=== PATIENT | male | born 1990 | race Caucasian/White ===

== ENCOUNTER 2018-02-09 13:49 | Outpatient (CLI) | payer OTHER ==
--- NOTE | 2018-02-09 18:05 | MRI Report ---
Procedure Date: 02/09/2018 Accession Number: [id number] / [id number] Procedure: MRI - Shoulder RT W/O CPT Code: FULL RESULT: EXAM: RIGHT SHOULDER MRI WITHOUT CONTRAST EXAM DATE: 02/09/2018 02:49 PM. CLINICAL HISTORY: Pain in right shoulder. COMPARISON: None. TECHNIQUE: Multiplanar, multisequence T1-weighted and fluid-sensitive sequences of the shoulder without contrast. Other: None. FINDINGS: Acromioclavicular Region: The acromion is type II. 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 Small AC joint effusion. The coracoacromial and coracoclavicular ligaments are intact. No subacromial/subdeltoid bursal fluid. Glenohumeral Region: No subluxation. No effusion or loose bodies. The articular cartilage is unremarkable. The glenohumeral ligaments and joint capsule are unremarkable. Bone Marrow: No fracture, marrow edema or bone lesions. Labrum: The labrum is unremarkable on this nonarthrographic study. Musculature/Rotator Cuff: Minimal increased T2 signal at the musculotendinous junction of the supraspinatus and infraspinatus portions the rotator cuff. Series 7 and 1 image 14 and 15. Remainder of the rotator cuff appears unremarkable. No proximal muscular fatty atrophy. Biceps Tendon: The long head of the biceps tendon and biceps tristen are intact. Other: The subcutaneous tissues are unremarkable. IMPRESSION: 1. Type II unipartite undersurface osseous acromion shape. 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 2. There is mild tendinopathy at the supraspinatus and infraspinatus portions the rotator cuff. No tear. 3. Labrum, capsular structures and long head of biceps appear unremarkable. [facility]CUL[facility] SECTION
== END 2018-02-09 13:50 | disposition home or self-care (01) ==
LOC: DI 13:49
PROVIDERS: ATTEND General Practice
DX: M19.011 Primary osteoarthritis, right shoulder (principal); M25.411 Effusion, right shoulder

== ENCOUNTER 2018-09-12 09:04 | Outpatient (CLI) | payer OTHER ==
[2018-09-12] MEDS ORDERED: BUFFERED LIDOCAINE 10 ML SYRINGE ONE ×2 (09:32)
[2018-09-12] MEDS ORDERED: GADOPENTETATE DIMEGLUMINE 5 ML VIAL IVP ONE ×2 (09:32→12:08)
[2018-09-12] MEDS ORDERED: IOTHALAMATE MEGLUMINE 50 ML VIAL ONE (09:33)
[2018-09-12] MEDS ORDERED: IOTHALAMATE MEGLUMINE 50 ML VIAL IVP ONE (12:08)
[2018-09-12] MEDS ORDERED: BUFFERED LIDOCAINE 10 ML SYRINGE IU ONE (12:08)
--- NOTE | 2018-09-12 13:15 | MRI Report ---
Reason: PAIN IN LEFT SHOULDER Procedure Date: 09/12/2018 Accession Number: [id number] / [id number] Procedure: MRI - Arthrogram Shoulder LT CPT Code: FULL RESULT: EXAM: LEFT SHOULDER MRI ARTHROGRAM WITH CONTRAST EXAM DATE: 09/12/2018 11:30 AM. CLINICAL HISTORY: Pain in left shoulder. COMPARISON: None. TECHNIQUE: Multiplanar, multisequence T1-weighted and fluid-sensitive sequences of the shoulder after an arthrographic injection of dilute gadolinium, dictated under a separate exam. Other: None. FINDINGS: Acromioclavicular Region: The acromion is type II. There is an acromioclavicular joint effusion. There is no contrast in the joint space. There is no contrast or fluid in the subacromial/subdeltoid bursa. Glenohumeral Region: No subluxation. No loose bodies. The articular cartilage is unremarkable. The glenohumeral ligaments and joint capsule are unremarkable. Bone Marrow: No fracture, marrow edema or bone lesions. Labrum: The labrum is unremarkable. Biceps Tendon: The long head of the biceps tendon and biceps tristen are intact. Musculature/Rotator Cuff: The subscapularis, supraspinatus, infraspinatus, and teres minor tendons are intact. No edema or fatty atrophy. Other: The subcutaneous tissues are unremarkable. IMPRESSION: 1. Effusion in the acromioclavicular joint which may indicate prior grade 1 disruption. 2. The glenohumeral joint, rotator cuff and labrum appeared normal. [facility]CUL[facility]KE[facility] SECTION
--- NOTE | 2018-09-12 16:57 | XRAY Report ---
Reason: PAIN IN LEFT SHOULDER Procedure Date: 09/12/2018 Accession Number: [id number] / [id number] Procedure: FL - Arthrogram Needle Placement CPT Code: FULL RESULT: EXAM: LEFT SHOULDER ARTHROGRAPHIC INJECTION WITH FLUOROSCOPIC GUIDANCE EXAM DATE: 09/12/2018 10:10 AM. CLINICAL HISTORY: PAIN IN LEFT SHOULDER. Dislocation left AC joint COMPARISON: None. TECHNIQUE: The risks, benefits, and alternatives of the procedure were discussed with the patient. All questions were answered. Written and verbal consent were obtained. The left glenohumeral joint was marked under fluoroscopy and prepped and draped in a sterile manner. Local anesthesia was performed with 1% lidocaine. A 22-gauge needle was then inserted into the glenohumeral joint. 10 mL of a solution containing 25% 1% lidocaine, 25% iodinated contrast, and a 1:200 dilution of gadolinium contrast in sterile saline was then injected. The needle was removed without immediate complication. Other: None. Fluoroscopy Time: 25 seconds. Number of Images: 2. FINDINGS: Bones and joints: Left AC joint separation. Injection: Fluoroscopic images demonstrate needle placement and contrast in the glenohumeral joint. IMPRESSION: Successful fluoroscopically guided arthrographic injection of the left shoulder. [facility]
== END 2018-09-12 09:05 | disposition home or self-care (01) ==
LOC: DI 09:04
PROVIDERS: ATTEND Orthopaedic Surgery
DX: M25.512 Pain in left shoulder (principal); M25.412 Effusion, left shoulder
CPT/HCPCS: 23350; 73222; 77002; Q9961

== ENCOUNTER 2018-10-30 11:55 | Emergency (ER) | payer OTHER ==
--- NOTE | 2018-10-30 12:57 | ED Physician Documentation ---
History of Present Illness - Stated complaint Stated Complaint: GROIN PX - Chief complaint Chief Complaint: Abd Pain - History obtained from History obtained from: Patient - History of Present Illness Timing: How many days ago (several) Pain level max: 5 Pain level now: 1 - Additonal information Additional information: 28-year-old male presents to the emergency department complaint of right sided groin pain for the past several days. Thinks he may have strained it lifting something heavy. Also concerned about a possible hernia. Denies any changes in sexual partners. No dysuria. Does occasionally have right-sided testicular pain. Worse with bending over. Better with standing. Normal bowel movements. No pain with bowel movement. Review of Systems Constitutional: denies: Fever, Chills Respiratory: denies: Cough GI: denies: Abdominal Pain, Nausea, Vomiting, Diarrhea Skin: denies: Rash Musculoskeletal: denies: Neck pain, Back pain PD PAST MEDICAL HISTORY - Past Medical History Past Medical History: No Cardiovascular: None Respiratory: None Endocrine/Autoimmune: None GI: None, GERD : None HEENT: None Psych: Depression Musculoskeletal: Other Derm: Other Other Past Medical History: R shoulder AC separation - sug 08/16. L shoulder will be repaired soon as well - Past Surgical History Past Surgical History: Yes Ortho: Other - Present Medications Home Medications: Ambulatory Orders Medication Instructions Recorded Confirmed Duloxetine HCl [Cymbalta] 60 mg PO DAILY 08/01/18 10/30/18 traZODone [Desyrel] 50 mg PO HS 08/01/18 08/03/18 Ibuprofen 600 mg PO Q6HR PRN 08/03/18 10/30/18 - Allergies Allergies/Adverse Reactions: Allergies Allergy/AdvReac Type Severity Reaction Status Date / Time No Known Drug Allergies Allergy Verified 10/30/18 11:59 - Social History Does the pt smoke?: No Smoking Status: Former smoker PD ED PE NORMAL - Vitals Vital signs reviewed: Yes - General General: Alert and oriented X 3, No acute distress - HEENT HEENT: Moist mucous membranes - Neck Neck: Supple, no meningeal sign - Cardiac Cardiac: RRR - Respiratory Respiratory: No respiratory distress, Clear bilaterally - Abdomen Abdomen: Soft, Non tender, Non distended - Male Male : Other (Normal external exam. No testicular tenderness. No masses. No epididymal tenderness. No inguinal hernia palpable on lying or standing with Valsalva. Patient refuses rectal exam) - Back Back: No spinal TTP - Derm Derm: Warm and dry - Neuro Neuro: Alert and oriented X 3 Results - Vitals Vitals: Vital Signs - 24 hr 10/30/18 14:47 Heart Rate 80 Respiratory 16 Rate Blood Pressure 130/77 O2 Saturation 96 Oxygen O2 Source Room air - Labs Labs: Laboratory Tests 10/30/18 13:22 Urine Color YELLOW Urine Clarity CLEAR Urine pH 7.0 Ur Specific [place] 1.020 Urine Protein NEGATIVE Urine Glucose (UA) NEGATIVE Urine Ketones NEGATIVE Urine Occult Blood NEGATIVE Urine Nitrite NEGATIVE Urine Bilirubin NEGATIVE Urine Urobilinogen 0.2 (NORMAL) Ur Leukocyte Esterase NEGATIVE Ur Microscopic Review NOT INDICATED Urine Culture Comments NOT INDICATED - Rads (name of study) Testicular ultrasound Radiology: Prelim report reviewed, EMP read contemporaneously, See rad report (no acute findings) PD MEDICAL DECISION MAKING - ED course Complexity details: reviewed results, re-evaluated patient, considered differential, d/w patient ED course: 28-year-old male with groin and perineal discomfort of unclear etiology. He refuses a rectal exam. Is not having pain with bowel movements. Possible early prostatitis? But has been ongoing for quite some time. No evidence of hernia on physical exam or ultrasound. We will have him follow-up with his doctor for further care. Patient counseled regarding signs and symptoms for which I believe and urgent re-evaluation would be necessary. Patient with good understanding of and agreement to plan and is comfortable going home at this time This document was made in part using voice recognition software. While efforts are made to proofread this document, sound alike and grammatical errors may occur. Departure - Departure Disposition: 01 Home, Self Care Clinical Impression: Groin pain Qualifiers: Laterality: right Qualified Code(s): R10.31 - Right lower quadrant pain Condition: Good Instructions: ED Acute Pain [facility] Follow-Up: Louis Flowers MD [Primary Care Provider] - Within 3 Days Comments: The cause of your symptoms is unclear today. Follow-up with your doctor for further care. All of your testing is normal today. Discharge Date/Time: 10/30/18 14:47
--- NOTE | 2018-10-30 13:49 | Ultrasound Report ---
Reason: R testicular and groin pain x 3 days Procedure Date: 10/30/2018 Accession Number: [id number] / [id number] Procedure: US - Testicle w/Doppler CPT Code: FULL RESULT: EXAM: SCROTAL ULTRASOUND EXAM DATE: 10/30/2018 01:20 PM. CLINICAL HISTORY: R testicular and groin pain x 3 days. COMPARISON: None available. TECHNIQUE: Real-time scanning was performed with static images obtained. Color-flow images were utilized. FINDINGS: Right: Testis: 3.9 x 2.0 x 2.6 cm. Normal size and echotexture. No mass, calcification, or abnormal blood flow. Epididymis: 1.4 x 0.7 x 1.5 cm. Normal size and echotexture. No mass or abnormal blood flow. Hydrocele: Trace. Varicocele: None. Left: Testis: 4.0 x 1.8 x 2.8 cm. Normal size and echotexture. No mass, calcification, or abnormal blood flow. Epididymis: 0.7 x 0.9 x 1.0 cm. Normal size and echotexture. No mass or abnormal blood flow. Hydrocele: Trace Varicocele: None. IMPRESSION: No evidence of testicular torsion. Trace bilateral hydroceles. [facility]
[2018-10-30 14:25] LABS: BILIRUBIN,URINE NEGATIVE (NEGATIVE); GLUCOSE, URINE (UA) NEGATIVE (NEGATIVE); KETONES,URINE (UA) NEGATIVE (NEGATIVE); LEUKOCYTE ESTERASE, URINE NEGATIVE (NEGATIVE); NITRITE,URINE NEGATIVE (NEGATIVE); OCCULT BLOOD,URINE NEGATIVE (NEGATIVE); PROTEIN,URINE NEGATIVE (NEGATIVE); UROBILINOGEN,URINE 0.2 (NORMAL) E.U./dL (NORMAL)
[2018-10-30 14:31] LABS: CLARITY,URINE CLEAR (CLEAR)
[2018-10-30 14:48] VITALS: BP 130/77
== END 2018-10-30 14:47 | disposition home or self-care (01) ==
LOC: ED 11:55
DX: R10.31 Right lower quadrant pain (principal); Z87.891 Personal history of nicotine dependence
CPT/HCPCS: 76870; 81001; 81003; 87086; 87491; 87591; 93975; 99283

== ENCOUNTER 2018-12-09 07:01 | Day surgery (SDC) | payer OTHER ==
[~2018-12-09 07:01] MED LIST: cefTRIAXone 2 GM VIAL ONE
[2018-12-09] MEDS ORDERED: LACTATED RINGERS 1,000 ML IV ONE ×3 (07:02→12:25)
--- NOTE | 2018-12-09 07:14 | ANESTHESIA ---
Pre-Anesthesia VS, & Labs - Diagnosis L shoulder AC joint dislocation - Procedure L shoulder cc ligament reconstruction Height 6 ft Weight (kg) 85.73 kg Body Mass Index 23.7 - NPO >8 hours Home Medications and Allergies Duloxetine HCl [Cymbalta] 60 mg PO DAILY 08/01/18 Ibuprofen 600 mg PO Q6HR PRN 08/03/18 Allergies/Adverse Reactions: Allergies Allergy/AdvReac Type Severity Reaction Status Date / Time No Known Drug Allergies Allergy Verified 12/05/18 11:02 Anes History & Medical History - Anesthetic History Anesthesia Complications: reports: No previous complications Family history of Anesthesia Complications: Denies Family history of Malignant Hyperthermia: Denies - Medical History Cardiovascular: reports: None Pulmonary: reports: None Gastrointestinal: reports: None Urinary: reports: None Musculoskeletal: reports: Other Endocrine/Autoimmune: reports: None Skin: reports: None Smoking Status: Former smoker Exam General: Alert, Oriented x3, Cooperative Dental: WNL Mouth Openin Fingerbreadth Neck Mobility: Normal Mallampati classification: II Thyromental Distance: 4-6 cm Respiratory: Lungs clear, Normal breath sounds Cardiovascular: Regular rate Neurological: Normal speech Mental/Cognitive Status: Alert/Oriented X3, Normal for patient Cognitive Status: Within normal limits Plan Anesthesia Type: General, Interscalene Block (only as rescue per surgeon, post- op) Consent for Procedure(s) Verified and Reviewed: Yes Code Status: Attempt Resuscitation ASA classification: 1-Healthy patient Is this case an emergency?: No
[2018-12-09] MEDS ORDERED: BUPIVACAINE 0.5% PF 30 ML VIAL ONE (07:35)
[2018-12-09] MEDS ORDERED: BUPIVACAINE 0.5% PF 30 ML VIAL SUBQ ONE (08:27)
[2018-12-09] MEDS ORDERED: fentaNYL 100 MCG/2 ML VIAL IVP ONE (08:30)
[2018-12-09] MEDS ORDERED: DEXAMETHASONE 4 MG/ML VIAL IVP ONE (08:30)
[2018-12-09] MEDS ORDERED: KETOROLAC 30 MG/ML VIAL IVP ONE (08:30)
[2018-12-09] MEDS ORDERED: ONDANSETRON 4 MG/2 ML VIAL IVP ONE (08:30)
[2018-12-09] MEDS ORDERED: ACETAMINOPHEN 1,000 MG/100 ML 100 ML IV ONE (08:30)
[2018-12-09] MEDS ORDERED: ROCURONIUM 50 MG/5 ML VIAL IVP ONE (08:30)
[2018-12-09] MEDS ORDERED: PROPOFOL 200 MG/20 ML VIAL IVP ONE (08:30)
[2018-12-09] MEDS ORDERED: MIDAZOLAM 2 MG/2 ML VIAL IVP ONE (08:30)
[2018-12-09] MEDS ORDERED: LIDOCAINE-MPF 2% 5 ML VIAL IM ONE (08:30)
[2018-12-09] MEDS ORDERED: ONDANSETRON 4 MG/2 ML VIAL IVP PRN (10:35)
[2018-12-09] MEDS ORDERED: oxyCODONE 5 MG TABLET PO PRN (10:35)
--- NOTE | 2018-12-09 10:42 | OPERATIVE REPORT ---
Operative Report - Other Other Information/Narrative: Date of Surgery: 09 December 2018 Pre-Op Diagnosis: Left grade 3 AC separation Procedure: Left coracoclavicular joint reconstruction Left acromioclavicular joint reconstruction Postop Diagnosis: Same Primary Surgeon: Jon Woodruff Secondary Surgeon: Donovan Sinha Complications: None EBL: 50 Implants: 5.5 x 15 mm peek Bio-Tenodesis screw x2 Arthrex Fiber tape x1 Arthrex Tibialis anterior allograft Postoperative Protocol: 0-2 weeks-Sling at all times. xrays @ 2 weeks 2-6 weeks-Passive range of motion in all planes. Sling on at all times when not in PT 6-12 weeks-Active range of motion in all planes 12 weeks and beyond-Increase strengthening activities Indication For Surgery: 28-year-old male who is 7 months status post a grade 3 AC separation. He underwent extensive physical therapy but continued to have instability and dysfunction of the left shoulder. The risks, benefits, and alternatives were discussed. Risks include pain, bleeding, infection, damage to nearby structures, numbness, lack of symptom relief, implant complications, nonunion, need for further surgery, DVT, PE, stroke, and . Written consent was obtained. Procedure in Detail: The patient was met in the preoperative holding on the day of the procedure. Operative extremity was signed. Consent was verified. They desired to proceed. Regional anesthesia was obtained in the preoperative area. They were brought to the operating room and surrendered to anesthesia. Once general anesthesia was obtained they were placed in the beach chair position. A padded kidney pad was placed. The head was secured with the neck in a neutral position. A surgical timeout was held to confirm the patient procedure, identity, procedure, laterality, allergies, images, and antibiotics. All were in agreement we proceeded. A 7 cm incision was made in line with Obie's lines from the coracoid to the clavicle. Hemostasis was obtained with electrocautery. Dissection was brought down to the fascia and full-thickness skin flaps were created. Full-thickness incision was made superiorly over the clavicle and the distal clavicle was skeletonized from the deltoid insertion and at the trapezial insertion. The AC joint was entered and the capsule was split superiorly. I then used scissors to separate the tissue beneath the clavicle at the location of the coracoid. I then used electrocautery to dissect down to the lateral aspect of the coracoid. A dhillon elevator was used to clear the base of the coracoid of all attached soft tissue taking care to not disrupt insertions of the tendon at the tip. I then placed the coracoid suture passer by Arthrex from medial to lateral, hugging the bone. Sutures were passed I then thawed out the allograft and placed fiber loop on each end. It sized to 5.5 mm I then marked 45 mm from the articular surface of the clavicle. The pin for the conoid ligament reconstruction was placed posteriorly within the clavicle and I ensured that I would not blow out the back. I then reamed to 6 mm bicortically and protected myself inferiorly with a wide dhillon elevator. I then repeated this procedure 15 mm lateral to the conoid tunnel and more central in the clavicle to re-create the trapezoid ligament. The wound was then irrigated copiously of all bony debris. I then passed the graft under the coracoid with a fiber tape. The graft and fiber tape was then brought up through the tunnels and the clavicle was reduced. The fiber tape was brought through the center of the implant and a peak tenodesis screw was placed in the medial tunnel. I then reduced the clavicle and pulled on the graft and took an x-ray showing that had been over reduced in the appropriate fashion. Satisfied with this I placed the lateral Bio-Tenodesis screw without complication. The clavicle was found to be very stable in the superior to inferior direction. I then tied the fiber tape over the bony bridge of the clavicle. I then took the excess graft from the lateral tunnel and brought it to the AC joint. I placed a 2 mm drill hole through the anterior superior edge of the acromion and fixed to the excess graft to the acromion using a #2 FiberWire. Excess graft was then cut. Satisfied with this I irrigated copiously and performed the fascial closure using 0 Vicryl and obtaining full-thickness fascial flaps. I incorporated the allograft into the fascial closure. The deep tissues were closed with 0 Vicryl and the skin incisions were closed with 2-0 Vicryl in the dermis and a running 3-0 Monocryl in the skin. Mastisol and Steri-Strips were applied. A sterile dressing and a sling was applied. The patient was awakened and transferred to the recovery room.
--- NOTE | 2018-12-09 10:52 | XRAY Report ---
Reason: LIGAMENT RECONSTRUCTION Procedure Date: 12/09/2018 Accession Number: [id number] / [id number] Procedure: XR - Shoulder 2 View LT CPT Code: FULL RESULT: EXAM: FLUOROSCOPIC GUIDANCE EXAM DATE: 12/09/2018 09:34 AM. CLINICAL HISTORY: Left shoulder ligament reconstruction. COMPARISON: ARTHROGRAM 09/12/2018 9:52 AM SHOULDER 2 VIEW LT 12/09/2018 9:35 AM SHOULDER RT W/O 02/09/2018 2:15 PM. FINDINGS: Normal configuration of the shoulder is seen on a spot fluoroscopic image with overlying surgical instruments. IMPRESSION: Fluoroscopic guidance provided for shoulder ligament reconstruction. Total fluoroscopy time: 0, Air kerma 0.2 mGy. Number of images: 1. [facility]
--- NOTE | 2018-12-09 10:52 | XRAY Report ---
Reason: Left Shoulder ligament reconstruction Procedure Date: 12/09/2018 Accession Number: [id number] / [id number] Procedure: FL - OR C-Arm Procedure CPT Code: FULL RESULT: EXAM: FLUOROSCOPIC GUIDANCE EXAM DATE: 12/09/2018 09:34 AM. CLINICAL HISTORY: Left shoulder ligament reconstruction. COMPARISON: ARTHROGRAM 09/12/2018 9:52 AM SHOULDER 2 VIEW LT 12/09/2018 9:35 AM SHOULDER RT W/O 02/09/2018 2:15 PM. FINDINGS: Normal configuration of the shoulder is seen on a spot fluoroscopic image with overlying surgical instruments. IMPRESSION: Fluoroscopic guidance provided for shoulder ligament reconstruction. Total fluoroscopy time: 0, Air kerma 0.2 mGy. Number of images: 1. [facility]
[2018-12-09] MEDS ORDERED: ONDANSETRON 4 MG/2 ML VIAL ONE (11:04)
[2018-12-09] MEDS ORDERED: oxyCODONE 5 MG TABLET ONE ×2 (11:59→12:58)
[2018-12-09] MEDS ORDERED: oxyCODONE 5 MG TABLET PO ONE (12:53)
[2018-12-09 13:44] VITALS: BP 133/93
== END 2018-12-09 07:02 | disposition home or self-care (01) ==
LOC: SDS 07:01
PROVIDERS: ATTEND Orthopaedic Surgery
PROC: 0RU Upper Joints, Supplement (ICD-10-PCS; 2018-12-09)
PROC: 0RS Upper Joints, Reposition (ICD-10-PCS; principal; 2018-12-09 07:30)
DX: M25.312 Other instability, left shoulder (principal); Z87.891 Personal history of nicotine dependence
CPT/HCPCS: 23552; 73030; A9270; C1713; C1762; J0131; J7120

== ENCOUNTER 2018-12-10 12:24 | Emergency (ER) | payer OTHER ==
[2018-12-10] MEDS ORDERED: ONDANSETRON 4 MG/2 ML VIAL IVP STA (12:34)
[2018-12-10] MEDS ORDERED: SODIUM CHLORIDE 0.9% 1,000 ML IV ONE (12:34)
[2018-12-10] MEDS ORDERED: HYDROmorphone 1 MG/ML CARPUJECT IVP STA (12:34)
--- NOTE | 2018-12-10 12:37 | ED Physician Documentation ---
PD HPI NVD - Stated complaint Stated Complaint: N/V - Chief complaint Chief Complaint: Abd Pain - History obtained from History obtained from: Patient - History of Present Illness Timing - onset: Yesterday (He had an AC joint reconstruction yesterday. He has been vomiting, presumably because of the pain medicine and cannot keep anything down including the pain medicine now so now his postoperative left shoulder pain is severe. He denies fevers or abdominal pain.) Review of Systems Constitutional: denies: Fever, Chills Cardiac: reports: Reviewed and negative Respiratory: reports: Reviewed and negative GI: reports: Nausea, Vomiting. denies: Abdominal Pain, Diarrhea PD PAST MEDICAL HISTORY - Past Medical History Cardiovascular: None Respiratory: None Endocrine/Autoimmune: None GI: None : None HEENT: None Psych: Depression Musculoskeletal: Other Derm: None - Past Surgical History Past Surgical History: Yes Ortho: Other - Present Medications Home Medications: Ambulatory Orders Medication Instructions Recorded Confirmed Duloxetine HCl [Cymbalta] 60 mg PO DAILY 08/01/18 10/30/18 Ibuprofen 600 mg PO Q6HR PRN 08/03/18 10/30/18 Acetaminophen [Tylenol] 650 12/10/18 Ibuprofen [Motrin] 800 mg PO Q8H PRN #30 tablet 12/10/18 Ondansetron Odt [Zofran] 4 mg TL Q6H PRN #15 tablet 12/10/18 oxyCODONE [Roxicodone] 5 12/10/18 - Allergies Allergies/Adverse Reactions: Allergies Allergy/AdvReac Type Severity Reaction Status Date / Time No Known Drug Allergies Allergy Verified 12/10/18 12:29 - Social History Does the pt smoke?: No Smoking Status: Former smoker PD ED PE NORMAL - Vitals Vital signs reviewed: Yes - General General: Alert and oriented X 3, No acute distress - HEENT HEENT: Other (tacky MM) - Neck Neck: Supple, no meningeal sign, No bony TTP - Cardiac Cardiac: RRR, No murmur - Respiratory Respiratory: No respiratory distress, Clear bilaterally - Abdomen Abdomen: Soft, Non tender - Neuro Neuro: Alert and oriented X 3, Normal speech Results - Vitals Vitals: Vital Signs - 24 hr 12/10/18 12:27 Temperature 36.8 C Heart Rate 82 Respiratory 20 Rate Blood Pressure 172/86 H O2 Saturation 100 Oxygen O2 Source Room air PD MEDICAL DECISION MAKING - ED course ED course: This young man with postoperative nausea and vomiting. His nausea resolved after the administration of IV fluids and Zofran. Departure - Departure Disposition: 01 Home, Self Care Clinical Impression: PONV (postoperative nausea and vomiting) Condition: Good Record reviewed to determine appropriate education?: Yes Instructions: ED Nausea Vomiting Prescriptions: Ibuprofen [Motrin] 800 mg PO Q8H PRN #30 tablet PRN Reason: PAIN &/OR FEVER Ondansetron Odt [Zofran] 4 mg TL Q6H PRN #15 tablet PRN Reason: Nausea / Vomiting Comments: Call your doctor to arrange a follow-up appointment, make the next available appointment. In the interim, return anytime if worse or if new symptoms develop. Your blood pressure was elevated today on check into the emergency department. This does not mean that you have hypertension, it is a common phenomenon to come to the emergency department and have elevated blood pressure. I recommend that you see your primary care physician within the week to have it rechecked when you are feeling better.
[2018-12-10] MEDS ORDERED: KETOROLAC 30 MG/ML VIAL IVP STA (13:49)
[2018-12-10 14:15] VITALS: BP 129/85
== END 2018-12-10 14:18 | disposition home or self-care (01) ==
LOC: ED 12:24
DX: M96.89 Other intraoperative and postprocedural complications and disorders of the musculoskeletal system (principal); R11.2 Nausea with vomiting, unspecified; Z87.891 Personal history of nicotine dependence
CPT/HCPCS: 96361; 96374; 96375; 99283; J1170